=== PATIENT | male | born 1995 | race Caucasian/White ===

== ENCOUNTER 2016-05-14 17:35 | Emergency (ER) | payer OTHER ==
--- NOTE | 2016-05-14 18:31 | ED NURSING NOTES ---
Clinical Report - Nurses [facility] [address] [place] [address] 05/14/2016 17:35 Patient: MANUEL THORPE III TRIAGE Triage time 17:54. Acuity: LEVEL 4. Chief Complaint: SORE THROAT and FEVER. Alert. No acute distress. SEPSIS SCREEN: Sepsis Screen. Negative (no infection suspected/documented). SANG COMA SCORE: [place] Coma Scale: 15- eyes open spontaneously (4); best verbal response- oriented x 4 (5); best motor response- obeys commands (6). --17:59 Mariajose Mosquera R.N. 17:53 05/14/16. BP: 129/42. HR: 90. RR: 16. O2 saturation: 99%. Temp: 98.4 F. Pain level now 7/10. --17:59 Mariajose Mosquera R.N. Weight: 82.5 kg stated. Height/Length: 68 inches Per Patient. BMI: 27.7. Growth Chart Percentile: Weight: 83.4%. Height/Length: 28.7%. --17:57 Mariajose Mosquera R.N. Medications Tylenol with Codeine #3 Oral, as needed. --17:59 Mariajose Mosquera R.N. Allergies No Known Drug Allergy. --17:59 Mariajose Mosquera R.N. History Arrived by private vehicle. Historian: patient. Unaccompanied. Primary physician (none). Onset. (3 days). 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 ([place] and give tylenol #3 and throat lozenges.). PAST MEDICAL HX: Immunizations: up-to-date. SOCIAL HX: Never smoker. No alcohol use or drug use. No infectious disease exposure. ABUSE ASSESSMENT: Abuse assessment: The patient was asked "Do you feel safe in your home?" and "Has anyone hurt you or threatened to hurt you?". No report of abuse. SELF HARM ASSESSMENT: A self harm assessment was performed. The patient answered "no" to the question "Do you have thoughts of harming or killing yourself?" and "Have you recently had thoughts about harming or killing others?". NUTRITIONAL RISK ASSESSMENT: The nutritional risk assessment revealed no deficiencies. FUNCTIONAL ASSESSMENT: Functional assessment: no impairments noted. LEARNING NEEDS ASSESSMENT: The learning needs assessment revealed no barriers. --17:59 Mariajose Mosquera R.N. PROBLEMS: Tonsillitis. Laceration. --17:59 Mariajose Mosquera R.N. Interventions ID band on patient. Ambulatory. --17:59 Mariajose Mosquera R.N. PHYSICAL ASSESSMENT Ambulatory to room. GENERAL / NEURO / PSYCH: Alert. Appears in no acute distress. HEENT: Hoarse voice. RESPIRATORY: Respirations not labored. SKIN: Skin is warm and dry. --18:00 Mariajose Mosquera R.N. NURSING PROGRESS NOTES Head of bed elevated. Two patient identifiers checked. Call light placed in reach. Side rails up x 2. Bed placed in lowest position. Brakes of bed on. Patient ready for evaluation- chart flagged. --18:00 Mariajoes Mosquera R.N. Patient ID band checked for patient name, birthdate and medical record number: patient confirmed. Throat swab obtained for rapid strep and culture; labeled in the presence of the patient and sent to lab. --18:00 Mariajose Mosquera R.N. 18:07 05/14/2016 Dexamethasone (Dexamethasone) PO 8 mg given. Allergies verified and confirmed 5 rights. --18:07 Mariajose Mosquera R.N. DISPOSITION / DISCHARGE 18:43. Departure time: 184. Condition at departure: stable. No learning barriers present. Discharge instructions provided and reviewed with the patient. Reviewed medication(s) side effects, precautions, dosing and course information. Prescription(s) given to the patient. Reviewed referral to family practice for followup. Patient verbalized understanding. Written instructions provided in Lebanese. The patient was discharged home and unaccompanied at time of discharge. He left the Emergency Department ambulatory and via private vehicle. Medication list reviewed and validated. --18:49 Mariajose Mosquera R.N. 18:43 05/14/16. RR: 15. Additional comments: d/c v/s deferred due to pt. in ED < 1 hour. Pt. appears stable and comfortable at time of discharge. . --18:49 Mariajose Mosquera R.N. Locked/Released at 05/14/2016 18:50 by Mariajose Mosquera R.N.
--- NOTE | 2016-05-14 18:31 | ED CLINICAL REPORT ---
Clinical Report - Physicians/Mid Levels [facility] [address] [place] [address] 05/14/2016 17:35 Patient: MANUEL THORPE III Time Seen: 18:00 May 14 2016. Arrived- By private vehicle. Historian- patient. 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 This started just prior to arrival and is still present. Pain described as mild. The patient has had a sore throat. No nasal discharge or congestion or swollen jaw. (Patient with sore throat over the last 2 days, was recently seen at the clinic, nasal clinic Center on Tylenol with Codeine and some lozenges. NO recent exposures to [place]. NO cough. Fevers subj yesterday at clinic). REVIEW OF SYSTEMS No cough, chest pain, diarrhea, abdominal pain or skin rash. No enlarged lymph nodes. SOCIAL HISTORY Never smoker. No alcohol use or drug use. ADDITIONAL NOTES The nursing notes have been reviewed. PHYSICAL EXAM Vital Signs: 05/14/2016 17:53 BP: 129/42. HR: 90. RR: 16. O2 saturation: 99%. Temp: 98.4 F. Appearance: Alert. Eyes: Conjunctivae and eyelids normal. ENT: Pharyngeal erythema. Pharynx normal. No trismus present. Uvula midline. No dental decay. Neck: Lymphadenopathy present. Trachea midline. Thyroid normal. Neck supple. CVS: Normal heart rate and rhythm. Heart sounds normal. Respiratory: No respiratory distress. Chest nontender. Abdomen: Soft. Skin: Normal skin color. PROGRESS AND PROCEDURES Course of Care: 06/06 centor criteria Pt stable. No fever in er, subjective. Pt stable. TO f/u outpatient. NO recent mono exposure. Sx acute in nature. Uvula midline, no shift. 05/14/2016 18:43 RR: 15. Patient is stable. Symptoms better. Patient/family counseled. Disposition: Discharged. Condition: good. CLINICAL IMPRESSION Acute streptococcal pharyngitis INSTRUCTIONS Do not work tomorrow. Drink plenty of fluids. Prescription Medications: Amoxicillin 500 mg tablets: take 1 orally every 8 hours for 10 days. No refills. Ibuprofen 800 mg tablets: take 1 tablet orally every 8 hours for 3 days, as needed for pain. Dispense ten (10). No refill. Follow-up: Follow up with doctor in three days. Understanding of the discharge instructions verbalized. (Electronically signed by Lynn Diaz P.A.-C 05/14/2016 18:53)
--- NOTE | 2016-05-14 18:31 | ED NURSING NOTES ---
Clinical Report - Nurses [facility] [address] [place] [address] 05/14/2016 17:35 Patient: MANUEL THORPE III TRIAGE Triage time 17:54. Acuity: LEVEL 4. Chief Complaint: SORE THROAT and FEVER. Alert. No acute distress. SEPSIS SCREEN: Sepsis Screen. Negative (no infection suspected/documented). SANG COMA SCORE: [place] Coma Scale: 15- eyes open spontaneously (4); best verbal response- oriented x 4 (5); best motor response- obeys commands (6). --17:59 Mariajose Mosquera R.N. 17:53 05/14/16. BP: 129/42. HR: 90. RR: 16. O2 saturation: 99%. Temp: 98.4 F. Pain level now 7/10. --17:59 Mariajose Mosquera R.N. Weight: 82.5 kg stated. Height/Length: 68 inches Per Patient. BMI: 27.7. Growth Chart Percentile: Weight: 83.4%. Height/Length: 28.7%. --17:57 Mariajose Mosquera R.N. Medications Tylenol with Codeine #3 Oral, as needed. --17:59 Mariajose Mosquera R.N. Allergies No Known Drug Allergy. --17:59 Mariajose Mosquera R.N. History Arrived by private vehicle. Historian: patient. Unaccompanied. Primary physician (none). Onset. (3 days). 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 ([place] and give tylenol #3 and throat lozenges.). PAST MEDICAL HX: Immunizations: up-to-date. SOCIAL HX: Never smoker. No alcohol use or drug use. No infectious disease exposure. ABUSE ASSESSMENT: Abuse assessment: The patient was asked "Do you feel safe in your home?" and "Has anyone hurt you or threatened to hurt you?". No report of abuse. SELF HARM ASSESSMENT: A self harm assessment was performed. The patient answered "no" to the question "Do you have thoughts of harming or killing yourself?" and "Have you recently had thoughts about harming or killing others?". NUTRITIONAL RISK ASSESSMENT: The nutritional risk assessment revealed no deficiencies. FUNCTIONAL ASSESSMENT: Functional assessment: no impairments noted. LEARNING NEEDS ASSESSMENT: The learning needs assessment revealed no barriers. --17:59 Mariajose Mosquera R.N. PROBLEMS: Tonsillitis. Laceration. --17:59 Mariajose Mosquera R.N. Interventions ID band on patient. Ambulatory. --17:59 Mariajose Mosquera R.N. PHYSICAL ASSESSMENT Ambulatory to room. GENERAL / NEURO / PSYCH: Alert. Appears in no acute distress. HEENT: Hoarse voice. RESPIRATORY: Respirations not labored. SKIN: Skin is warm and dry. --18:00 Mariajose Mosquera R.N. NURSING PROGRESS NOTES Head of bed elevated. Two patient identifiers checked. Call light placed in reach. Side rails up x 2. Bed placed in lowest position. Brakes of bed on. Patient ready for evaluation- chart flagged. --18:00 Mariajose Mosquera R.N. Patient ID band checked for patient name, birthdate and medical record number: patient confirmed. Throat swab obtained for rapid strep and culture; labeled in the presence of the patient and sent to lab. --18:00 Mariajose Mosquera R.N. 18:07 05/14/2016 Dexamethasone (Dexamethasone) PO 8 mg given. Allergies verified and confirmed 5 rights. --18:07 Mariajose Mosquera R.N. DISPOSITION / DISCHARGE 18:43. Departure time: 184. Condition at departure: stable. No learning barriers present. Discharge instructions provided and reviewed with the patient. Reviewed medication(s) side effects, precautions, dosing and course information. Prescription(s) given to the patient. Reviewed referral to family practice for followup. Patient verbalized understanding. Written instructions provided in British. The patient was discharged home and unaccompanied at time of discharge. He left the Emergency Department ambulatory and via private vehicle. Medication list reviewed and validated. --18:49 Mariajose Mosquera R.N. 18:43 05/14/16. RR: 15. Additional comments: d/c v/s deferred due to pt. in ED < 1 hour. Pt. appears stable and comfortable at time of discharge. . --18:49 Mariajose Mosquera R.N. Locked/Released at 05/14/2016 18:50 by Mariajose Mosquera R.N.
--- NOTE | 2016-05-14 18:31 | ED CLINICAL REPORT ---
Clinical Report - Physicians/Mid Levels [facility] [address] [place] [address] 05/14/2016 17:35 Patient: MANUEL THORPE III Time Seen: 18:00 May 14 2016. Arrived- By private vehicle. Historian- patient. 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 This started just prior to arrival and is still present. Pain described as mild. The patient has had a sore throat. No nasal discharge or congestion or swollen jaw. (Patient with sore throat over the last 2 days, was recently seen at the clinic, nasal clinic [facility] on Tylenol with Codeine and some lozenges. NO recent exposures to [place]. NO cough. Fevers subj yesterday at clinic). REVIEW OF SYSTEMS No cough, chest pain, diarrhea, abdominal pain or skin rash. No enlarged lymph nodes. SOCIAL HISTORY Never smoker. No alcohol use or drug use. ADDITIONAL NOTES The nursing notes have been reviewed. PHYSICAL EXAM Vital Signs: 05/14/2016 17:53 BP: 129/42. HR: 90. RR: 16. O2 saturation: 99%. Temp: 98.4 F. Appearance: Alert. Eyes: Conjunctivae and eyelids normal. ENT: Pharyngeal erythema. Pharynx normal. No trismus present. Uvula midline. No dental decay. Neck: Lymphadenopathy present. Trachea midline. Thyroid normal. Neck supple. CVS: Normal heart rate and rhythm. Heart sounds normal. Respiratory: No respiratory distress. Chest nontender. Abdomen: Soft. Skin: Normal skin color. PROGRESS AND PROCEDURES Course of Care: 06/06 centor criteria Pt stable. No fever in er, subjective. Pt stable. TO f/u outpatient. NO recent mono exposure. Sx acute in nature. Uvula midline, no shift. 05/14/2016 18:43 RR: 15. Patient is stable. Symptoms better. Patient/family counseled. Disposition: Discharged. Condition: good. CLINICAL IMPRESSION Acute streptococcal pharyngitis INSTRUCTIONS Do not work tomorrow. Drink plenty of fluids. Prescription Medications: Amoxicillin 500 mg tablets: take 1 orally every 8 hours for 10 days. No refills. Ibuprofen 800 mg tablets: take 1 tablet orally every 8 hours for 3 days, as needed for pain. Dispense ten (10). No refill. Follow-up: Follow up with doctor in three days. Understanding of the discharge instructions verbalized. (Electronically signed by Lynn Diaz P.A.-C 05/14/2016 18:53)
--- NOTE | 2016-05-14 18:31 | ED ORDER SUMMARY ---
..... Patient: MANUEL THORPE III OrderSheet [facility] VisitID: [id number] [place] [address] 20y, M Registration Date/Time: 05/14/2016 ORDER SHEET Weight: 82.5 kg (stated) Allergies: No Known Drug Allergy GENERAL ORDERS: Culture, Strep Screen Urgent (17:59 05/14/2016 Maribel Carr.A.-C) (Ack 18:03 Alexandro) (18:04 Sharon R.N.) MEDICATION ORDERS: Dexamethasone PO 8mg (NOW) (17:59 05/14/2016 Maribel Carr.Camila.-C) (Ack 18:04 Sharon R.N.) (18:07 Sharon R.N.) IV FLUIDS: ORDER SHEET NOTES: [Electronically signed by Mariajose Mosquera R.N. (18:50 05/14/2016)] [Electronically signed by Lynn Diaz-Castro (18:53 05/14/2016)] [Electronically locked/signed by Mariajose Mosquera R.N. (18:50 05/14/2016)]
--- NOTE | 2016-05-14 18:31 | ED ORDER SUMMARY ---
..... Patient: MANUEL THORPE III OrderSheet [facility] VisitID: [id number] [place] [address] 20y, M Registration Date/Time: 05/14/2016 ORDER SHEET Weight: 82.5 kg (stated) Allergies: No Known Drug Allergy GENERAL ORDERS: Culture, Strep Screen Urgent (17:59 05/14/2016 Maribel Carr.A.-C) (Ack 18:03 Alexandro) (18:04 Sharon R.N.) MEDICATION ORDERS: Dexamethasone PO 8mg (NOW) (17:59 05/14/2016 Maribel Carr.Camila.-C) (Ack 18:04 Sharon R.N.) (18:07 Sharon R.N.) IV FLUIDS: ORDER SHEET NOTES: [Electronically signed by Mariajose Mosquera R.N. (18:50 05/14/2016)] [Electronically signed by Lynn Diaz-Castro (18:53 05/14/2016)] [Electronically locked/signed by Mariajose Mosquera R.N. (18:50 05/14/2016)]
--- NOTE | 2016-05-14 18:53 | ED MAR SUMMARY ---
..... Medication Administration Record [facility] [address] [place] [address] Patient: MANUEL THORPE Visit ID: [id number] 20y, M Weight: 82.5 kg Height/Length: 68 in BMI: 27.7 ALLERGIES: No Known Drug Allergy Given 18:07 05/14/2016 Mariajose Mosquera RJohnathon Medication Administered: DEXAMETHASONE [PO] (DEXAMETHASONE), Dose: 8 mg PO. Medication Ordered: Dexamethasone PO 8mg (NOW).
--- NOTE | 2016-05-14 18:53 | ED MAR SUMMARY ---
..... Medication Administration Record [facility] [address] [place] [address] Patient: MANUEL THORPE Visit ID: [id number] 20y, M Weight: 82.5 kg Height/Length: 68 in BMI: 27.7 ALLERGIES: No Known Drug Allergy Given 18:07 05/14/2016 Mariajose Mosquera RJohnathon Medication Administered: DEXAMETHASONE [PO] (DEXAMETHASONE), Dose: 8 mg PO. Medication Ordered: Dexamethasone PO 8mg (NOW).
--- NOTE | 2016-05-14 18:53 | ED MED RECONCILIATION SUMMARY ---
Patient: MANUEL THORPE III Medication Reconciliation Report [facility] VisitID: [id number] [address] [place] [address] 20y, M Registration Date/Time: 05/14/2016 Weight: 82.5 kg Height/Length: 68 in. BMI: 27.7 ALLERGIES: No Known Drug Allergy The patient's Home Medications are listed below: THE FOLLOWING MEDICATIONS NEED TO BE RECONCILED: Tylenol with Codeine #3 Oral The source(s) of the original Home Medication information: Not obtained. The following Medications were given to the patient in the Emergency Department: Dexamethasone [PO] PO 8 mg, administered: 05/14/2016 6:07:00 PM The following Medications were prescribed to the patient: Amoxicillin 500 mg tablets: take 1 orally every 8 hours for 10 days. No refills. -- Lynn Diaz, P.A.-C Ibuprofen 800 mg tablets: take 1 tablet orally every 8 hours for 3 days, as needed for pain. Dispense ten (10). No refill. -- Lynn Diaz, P.A.-C
--- NOTE | 2016-05-14 18:53 | ED MED RECONCILIATION SUMMARY ---
Patient: MANUEL THORPE III Medication Reconciliation Report [facility] VisitID: [id number] [address] [place] [address] 20y, M Registration Date/Time: 05/14/2016 Weight: 82.5 kg Height/Length: 68 in. BMI: 27.7 ALLERGIES: No Known Drug Allergy The patient's Home Medications are listed below: THE FOLLOWING MEDICATIONS NEED TO BE RECONCILED: Tylenol with Codeine #3 Oral The source(s) of the original Home Medication information: Not obtained. The following Medications were given to the patient in the Emergency Department: Dexamethasone [PO] PO 8 mg, administered: 05/14/2016 6:07:00 PM The following Medications were prescribed to the patient: Amoxicillin 500 mg tablets: take 1 orally every 8 hours for 10 days. No refills. -- Lynn Diaz, P.A.-C Ibuprofen 800 mg tablets: take 1 tablet orally every 8 hours for 3 days, as needed for pain. Dispense ten (10). No refill. -- Lynn Diaz, P.A.-C
--- NOTE | 2016-05-14 18:53 | ED DISCHARGE INSTRUCTIONS ---
Patient: MANUEL THORPE III General Instructions [facility] VisitID: [id number] [place] [address] 20y, M Registration Date/Time: 05/14/2016 Acute streptococcal pharyngitis INSTRUCTIONS Do not work tomorrow. Drink plenty of fluids. Prescription Medications: Amoxicillin 500 mg tablets: take 1 orally every 8 hours for 10 days. No refills. Ibuprofen 800 mg tablets: take 1 tablet orally every 8 hours for 3 days, as needed for pain. Dispense ten (10). No refill. Follow-up: Follow up with doctor in three days. Understanding of the discharge instructions verbalized. ADDITIONAL INFORMATION Pharyngitis: Strep [Presumed] Your illness has the signs of a strep throat infection. Strep throat is a contagious illness. It is spread by coughing, kissing or by touching others after touching your mouth or nose. Symptoms include throat pain worse with swallowing, aching all over, headache and fever. You will be treated with an antibiotic, which should make you start to feel better within 1-2 days. Home Care: Rest at home and drink plenty of fluids to avoid dehydration. No school or work for the first two days on antibiotics. You will not be contagious after this time, and if you are feeling better, you can return to school or work. Take your antibiotics for a full 10 days, even if you feel better after the first few days of treatment. This is very important to prevent complications from the strep infection (such as heart or kidney disease). Children: Use acetaminophen (Tylenol) for fever, fussiness or discomfort. In infants over six months of age, you may use ibuprofen (Children's Motrin) instead of Tylenol. [NOTE: If your child has chronic liver or kidney disease or ever had a stomach ulcer or GI bleeding, talk with your doctor before using these medicines.] (Aspirin should never be used in anyone under 18 years of age who is ill with a fever. It may cause severe liver damage.) Adults: You may use acetaminophen (Tylenol) or ibuprofen (Motrin, Advil) to control pain or fever, unless another medicine was prescribed for this. [NOTE: If you have chronic liver or kidney disease or ever had a stomach ulcer or GI bleeding, talk with your doctor before using these medicines.] Throat lozenges or sprays (Chloraseptic and others) will reduce pain. Gargling with warm salt water will also reduce throat pain. Dissolve 1/2 teaspoon of salt in 1 glass of warm water. This is especially useful just before meals. Follow Up with your doctor or as directed by our staff if you are not improving over the next week. Get Prompt Medical Attention if any of the following occur: Fever over 100.5F (38.0C) oral, or over 101.5F (38.6C) rectal for more than three days New or worsening ear pain, sinus pain or headache Painful lumps in the back of your neck Unable to swallow liquids or open your mouth wide due to throat pain Trouble breathing or noisy breathing Muffled voice New rash Amoxicillin Trihydrate Oral tablet What is this medicine? AMOXICILLIN (a mox i JUDE in) is a penicillin antibiotic. It is used to treat certain kinds of bacterial infections. It will not work for colds, flu, or other viral infections. How should I use this medicine? Take this medicine by mouth with a glass of water. Follow the directions on your prescription label. You may take this medicine with food or on an empty stomach. Take your medicine at regular intervals. Do not take your medicine more often than directed. Take all of your medicine as directed even if you think your are better. Do not skip doses or stop your medicine early. Talk to your radio disc jockey regarding the use of this medicine in children. While this drug may be prescribed for selected conditions, precautions do apply. What side effects may I notice from receiving this medicine? Side effects that you should report to your doctor or health resident care coordinator as soon as possible: allergic reactions like skin rash, itching or hives, swelling of the face, lips, or tongue breathing problems dark urine redness, blistering, peeling or loosening of the skin, including inside the mouth seizures severe or watery diarrhea trouble passing urine or change in the amount of urine unusual bleeding or bruising unusually weak or tired yellowing of the eyes or skin Side effects that usually do not require medical attention (report to your doctor or health resident care coordinator if they continue or are bothersome): dizziness headache stomach upset trouble sleeping What may interact with this medicine? amiloride control pills chloramphenicol macrolides probenecid sulfonamides tetracyclines What if I miss a dose? If you miss a dose, take it as soon as you can. If it is almost time for your next dose, take only that dose. Do not take double or extra doses. Where should I keep my medicine? Keep out of the reach of children. Store between 68 and 77 degrees F (20 and 25 degrees C). Keep bottle closed tightly. Throw away any unused medicine after the expiration date. What should I tell my health care provider before I take this medicine? They need to know if you have any of these conditions: asthma kidney disease an unusual or allergic reaction to amoxicillin, other penicillins, cephalosporin antibiotics, other medicines, foods, dyes, or preservatives or trying to get breast-feeding What should I watch for while using this medicine? Tell your doctor or health resident care coordinator if your symptoms do not improve in 2 or 3 days. Take all of the doses of your medicine as directed. Do not skip doses or stop your medicine early. If you are diabetic, you may get a false positive result for sugar in your urine with certain brands of urine tests. Check with your doctor. Do not treat diarrhea with [id number] products. Contact your doctor if you have diarrhea that lasts more than 2 days or if the diarrhea is severe and watery. Ibuprofen Oral tablet What is this medicine? IBUPROFEN (eye BYOO proe fen) is a non-steroidal anti-inflammatory drug (NSAID). It is used for dental pain, fever, headaches or migraines, osteoarthritis, rheumatoid arthritis, or painful monthly periods. It can also relieve minor aches and pains caused by a cold, flu, or sore throat. How should I use this medicine? Take this medicine by mouth with a glass of water. Follow the directions on the prescription label. Take this medicine with food if your stomach gets upset. Try to not lie down for at least 10 minutes after you take the medicine. Take your medicine at regular intervals. Do not take your medicine more often than directed. A special MedGuide will be given to you by the pharmacist with each prescription and refill. Be sure to read this information carefully each time. Talk to your radio disc jockey regarding the use of this medicine in children. Special care may be needed. What side effects may I notice from receiving this medicine? Side effects that you should report to your doctor or health resident care coordinator as soon as possible: allergic reactions like skin rash, itching or hives, swelling of the face, lips, or tongue black or bloody stools, blood in the urine or in vomit breathing problems changes in vision chest pain general ill feeling or flu-like symptoms nausea or vomiting redness, blistering, peeling or loosening of the skin, including inside the mouth slurred speech or weakness on one side of the body stomach pain unexplained weight gain or swelling unusually weak or tired yellowing of eyes or skin Side effects that usually do not require medical attention (report to your doctor or health resident care coordinator if they continue or are bothersome): constipation or diarrhea dizziness gas or heartburn stomach upset What may interact with this medicine? Do not take this medicine with any of the following medications: cidofovir ketorolac methotrexate pemetrexed This medicine may also interact with the following medications: alcohol aspirin diuretics lithium other drugs for inflammation like prednisone warfarin What if I miss a dose? If you miss a dose, take it as soon as you can. If it is almost time for your next dose, take only that dose. Do not take double or extra doses. Where should I keep my medicine? Keep out of the reach of children. Store at room temperature between 15 and 30 degrees C (59 and 86 degrees F). Keep container tightly closed. Throw away any unused medicine after the expiration date. What should I tell my health care provider before I take this medicine? They need to know if you have any of these conditions: asthma cigarette smoker drink more than 3 alcohol containing drinks a day heart disease or circulation problems such as heart failure or leg edema (fluid retention) high blood pressure kidney disease liver disease stomach bleeding or ulcers an unusual or allergic reaction to ibuprofen, aspirin, other NSAIDS, other medicines, foods, dyes, or preservatives or trying to get breast-feeding What should I watch for while using this medicine? Tell your doctor or healthcare professional if your symptoms do not start to get better or if they get worse. This medicine does not prevent heart attack or stroke. In fact, this medicine may increase the chance of a heart attack or stroke. The chance may increase with longer use of this medicine and in people who have heart disease. If you take aspirin to prevent heart attack or stroke, talk with your doctor or health resident care coordinator. Do not take other medicines that contain aspirin, ibuprofen, or naproxen with this medicine. Side effects such as stomach upset, nausea, or ulcers may be more likely to occur. Many medicines available without a prescription should not be taken with this medicine. This medicine can cause ulcers and bleeding in the stomach and intestines at any time during treatment. Ulcers and bleeding can happen without warning symptoms and can cause . To reduce your risk, do not smoke cigarettes or drink alcohol while you are taking this medicine. You may get drowsy or dizzy. Do not drive, use machinery, or do anything that needs mental alertness until you know how this medicine affects you. Do not stand or sit up quickly, especially if you are an older patient. This reduces the risk of dizzy or fainting spells. This medicine can cause you to bleed more easily. Try to avoid damage to your teeth and gums when you brush or floss your teeth. You have been given the following additional information: Pharyngitis, Strep (Presumed) Amoxicillin Trihydrate Oral tablet Ibuprofen Oral tablet Do not work tomorrow. (Electronically signed by Lynn Diaz P.A.-C 05/14/2016 18:53)
--- NOTE | 2016-05-14 18:53 | ED DISCHARGE INSTRUCTIONS ---
Patient: MANUEL THORPE III General Instructions [facility] VisitID: [id number] [place] [address] 20y, M Registration Date/Time: 05/14/2016 Acute streptococcal pharyngitis INSTRUCTIONS Do not work tomorrow. Drink plenty of fluids. Prescription Medications: Amoxicillin 500 mg tablets: take 1 orally every 8 hours for 10 days. No refills. Ibuprofen 800 mg tablets: take 1 tablet orally every 8 hours for 3 days, as needed for pain. Dispense ten (10). No refill. Follow-up: Follow up with doctor in three days. Understanding of the discharge instructions verbalized. ADDITIONAL INFORMATION Pharyngitis: Strep [Presumed] Your illness has the signs of a strep throat infection. Strep throat is a contagious illness. It is spread by coughing, kissing or by touching others after touching your mouth or nose. Symptoms include throat pain worse with swallowing, aching all over, headache and fever. You will be treated with an antibiotic, which should make you start to feel better within 1-2 days. Home Care: Rest at home and drink plenty of fluids to avoid dehydration. No school or work for the first two days on antibiotics. You will not be contagious after this time, and if you are feeling better, you can return to school or work. Take your antibiotics for a full 10 days, even if you feel better after the first few days of treatment. This is very important to prevent complications from the strep infection (such as heart or kidney disease). Children: Use acetaminophen (Tylenol) for fever, fussiness or discomfort. In infants over six months of age, you may use ibuprofen (Children's Motrin) instead of Tylenol. [NOTE: If your child has chronic liver or kidney disease or ever had a stomach ulcer or GI bleeding, talk with your doctor before using these medicines.] (Aspirin should never be used in anyone under 18 years of age who is ill with a fever. It may cause severe liver damage.) Adults: You may use acetaminophen (Tylenol) or ibuprofen (Motrin, Advil) to control pain or fever, unless another medicine was prescribed for this. [NOTE: If you have chronic liver or kidney disease or ever had a stomach ulcer or GI bleeding, talk with your doctor before using these medicines.] Throat lozenges or sprays (Chloraseptic and others) will reduce pain. Gargling with warm salt water will also reduce throat pain. Dissolve 1/2 teaspoon of salt in 1 glass of warm water. This is especially useful just before meals. Follow Up with your doctor or as directed by our staff if you are not improving over the next week. Get Prompt Medical Attention if any of the following occur: Fever over 100.5F (38.0C) oral, or over 101.5F (38.6C) rectal for more than three days New or worsening ear pain, sinus pain or headache Painful lumps in the back of your neck Unable to swallow liquids or open your mouth wide due to throat pain Trouble breathing or noisy breathing Muffled voice New rash Amoxicillin Trihydrate Oral tablet What is this medicine? AMOXICILLIN (a mox i JUDE in) is a penicillin antibiotic. It is used to treat certain kinds of bacterial infections. It will not work for colds, flu, or other viral infections. How should I use this medicine? Take this medicine by mouth with a glass of water. Follow the directions on your prescription label. You may take this medicine with food or on an empty stomach. Take your medicine at regular intervals. Do not take your medicine more often than directed. Take all of your medicine as directed even if you think your are better. Do not skip doses or stop your medicine early. Talk to your furniture sales associate regarding the use of this medicine in children. While this drug may be prescribed for selected conditions, precautions do apply. What side effects may I notice from receiving this medicine? Side effects that you should report to your doctor or health healthcare management as soon as possible: allergic reactions like skin rash, itching or hives, swelling of the face, lips, or tongue breathing problems dark urine redness, blistering, peeling or loosening of the skin, including inside the mouth seizures severe or watery diarrhea trouble passing urine or change in the amount of urine unusual bleeding or bruising unusually weak or tired yellowing of the eyes or skin Side effects that usually do not require medical attention (report to your doctor or health healthcare management if they continue or are bothersome): dizziness headache stomach upset trouble sleeping What may interact with this medicine? amiloride control pills chloramphenicol macrolides probenecid sulfonamides tetracyclines What if I miss a dose? If you miss a dose, take it as soon as you can. If it is almost time for your next dose, take only that dose. Do not take double or extra doses. Where should I keep my medicine? Keep out of the reach of children. Store between 68 and 77 degrees F (20 and 25 degrees C). Keep bottle closed tightly. Throw away any unused medicine after the expiration date. What should I tell my health care provider before I take this medicine? They need to know if you have any of these conditions: asthma kidney disease an unusual or allergic reaction to amoxicillin, other penicillins, cephalosporin antibiotics, other medicines, foods, dyes, or preservatives or trying to get breast-feeding What should I watch for while using this medicine? Tell your doctor or health healthcare management if your symptoms do not improve in 2 or 3 days. Take all of the doses of your medicine as directed. Do not skip doses or stop your medicine early. If you are diabetic, you may get a false positive result for sugar in your urine with certain brands of urine tests. Check with your doctor. Do not treat diarrhea with [id number] products. Contact your doctor if you have diarrhea that lasts more than 2 days or if the diarrhea is severe and watery. Ibuprofen Oral tablet What is this medicine? IBUPROFEN (eye BYOO proe fen) is a non-steroidal anti-inflammatory drug (NSAID). It is used for dental pain, fever, headaches or migraines, osteoarthritis, rheumatoid arthritis, or painful monthly periods. It can also relieve minor aches and pains caused by a cold, flu, or sore throat. How should I use this medicine? Take this medicine by mouth with a glass of water. Follow the directions on the prescription label. Take this medicine with food if your stomach gets upset. Try to not lie down for at least 10 minutes after you take the medicine. Take your medicine at regular intervals. Do not take your medicine more often than directed. A special MedGuide will be given to you by the pharmacist with each prescription and refill. Be sure to read this information carefully each time. Talk to your furniture sales associate regarding the use of this medicine in children. Special care may be needed. What side effects may I notice from receiving this medicine? Side effects that you should report to your doctor or health healthcare management as soon as possible: allergic reactions like skin rash, itching or hives, swelling of the face, lips, or tongue black or bloody stools, blood in the urine or in vomit breathing problems changes in vision chest pain general ill feeling or flu-like symptoms nausea or vomiting redness, blistering, peeling or loosening of the skin, including inside the mouth slurred speech or weakness on one side of the body stomach pain unexplained weight gain or swelling unusually weak or tired yellowing of eyes or skin Side effects that usually do not require medical attention (report to your doctor or health healthcare management if they continue or are bothersome): constipation or diarrhea dizziness gas or heartburn stomach upset What may interact with this medicine? Do not take this medicine with any of the following medications: cidofovir ketorolac methotrexate pemetrexed This medicine may also interact with the following medications: alcohol aspirin diuretics lithium other drugs for inflammation like prednisone warfarin What if I miss a dose? If you miss a dose, take it as soon as you can. If it is almost time for your next dose, take only that dose. Do not take double or extra doses. Where should I keep my medicine? Keep out of the reach of children. Store at room temperature between 15 and 30 degrees C (59 and 86 degrees F). Keep container tightly closed. Throw away any unused medicine after the expiration date. What should I tell my health care provider before I take this medicine? They need to know if you have any of these conditions: asthma cigarette smoker drink more than 3 alcohol containing drinks a day heart disease or circulation problems such as heart failure or leg edema (fluid retention) high blood pressure kidney disease liver disease stomach bleeding or ulcers an unusual or allergic reaction to ibuprofen, aspirin, other NSAIDS, other medicines, foods, dyes, or preservatives or trying to get breast-feeding What should I watch for while using this medicine? Tell your doctor or healthcare professional if your symptoms do not start to get better or if they get worse. This medicine does not prevent heart attack or stroke. In fact, this medicine may increase the chance of a heart attack or stroke. The chance may increase with longer use of this medicine and in people who have heart disease. If you take aspirin to prevent heart attack or stroke, talk with your doctor or health healthcare management. Do not take other medicines that contain aspirin, ibuprofen, or naproxen with this medicine. Side effects such as stomach upset, nausea, or ulcers may be more likely to occur. Many medicines available without a prescription should not be taken with this medicine. This medicine can cause ulcers and bleeding in the stomach and intestines at any time during treatment. Ulcers and bleeding can happen without warning symptoms and can cause . To reduce your risk, do not smoke cigarettes or drink alcohol while you are taking this medicine. You may get drowsy or dizzy. Do not drive, use machinery, or do anything that needs mental alertness until you know how this medicine affects you. Do not stand or sit up quickly, especially if you are an older patient. This reduces the risk of dizzy or fainting spells. This medicine can cause you to bleed more easily. Try to avoid damage to your teeth and gums when you brush or floss your teeth. You have been given the following additional information: Pharyngitis, Strep (Presumed) Amoxicillin Trihydrate Oral tablet Ibuprofen Oral tablet Do not work tomorrow. (Electronically signed by Lynn Diaz P.A.-C 05/14/2016 18:53)
== END 2016-05-14 18:43 | disposition home or self-care (01) ==
LOC: ED SRH 17:35
DX: J02.0 Streptococcal pharyngitis (principal)
CPT/HCPCS: 90154; 90159

== ENCOUNTER 2016-06-05 13:19 | Emergency (ER) | payer OTHER ==
--- NOTE | 2016-06-05 15:45 | ED NURSING NOTES ---
Clinical Report - Nurses [facility] [address] [place] [address] 06/05/2016 13:21 [id number] Triage time 14:Jun 05 2016. Acuity: LEVEL 3. Chief Complaint: SORE THROAT. Alert. SARAH COMA SCORE: Sarah Coma Scale: 15- eyes open spontaneously (4); best verbal response- oriented x 4 (5); best motor response- obeys commands (6). --14:06 Myles Heebrt R.N. 14:01 06/05/16. BP: 135/79. HR: 87. RR: 16. O2 saturation: 100% on room air. Temp: 97.9 F (oral). Pain level now: 6/10. Additional comments: throat pain. --14:06 Myles Hebert R.N. Weight: 81.6 kg stated. Height/Length: 68 inches Per Patient. BMI: 27.4. Growth Chart Percentile: Weight: 81.6%. Height/Length: 28.6%. --14:03 Myles Hebert R.N. Medications None. --14:04 Myles Hebert R.N. Allergies No Known Drug Allergy. --14:05 Myles Hebert R.N. History Arrived by private vehicle. Historian: patient. Unaccompanied. ( Sore and swollen Throat). Onset. (about 3 days ago). He has had hoarseness. Reports enlarged lymph nodes. 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 PAST MEDICAL HX: Strep throat. Immunizations: status is unknown. SURGERY HX: No history of previous surgery. SOCIAL HX: Never smoker. No alcohol use or drug use. No infectious disease exposure. ABUSE ASSESSMENT: No report of abuse. FALL RISK ASSESSMENT: Fall risk assessment completed. No fall risk identified. NUTRITIONAL RISK ASSESSMENT: The nutritional risk assessment revealed no deficiencies. FUNCTIONAL ASSESSMENT: Functional assessment: no impairments noted. LEARNING NEEDS ASSESSMENT: The learning needs assessment revealed no barriers. SKIN INTEGRITY ASSESSMENT: Skin integrity risk assessment completed. No skin integrity risk identified. --14:06 Myles Hebert R.N. PROBLEMS: Pharyngitis. Tonsillitis. Laceration. --14:05 Myles Hebert R.N. Interventions ID band on patient. To treatment room. --14:06 Myles Hebert R.N. PHYSICAL ASSESSMENT Ambulatory to room. GENERAL / NEURO / PSYCH: Alert. Oriented X 4. Appears in pain. HEENT: Hoarse voice. Mucous membranes are pink. RESPIRATORY: Respirations not labored. SKIN: Skin is warm and dry. Normal skin turgor. --14:07 Myles Hebert R.N. NURSING PROGRESS NOTES Patient gowned. Reassurance given. Patient identifiers checked. Call light placed in reach. Side rails up x 1. Bed placed in lowest position. Brakes of bed on. Patient ready for evaluation- chart flagged and PA notified. --14:07 Myles Hebert R.N. Patient ID band checked for patient name and birthdate: patient confirmed. Blood samples drawn from the left antecubital space with 23g butterfly by tech per protocol ; labeled in presence of the patient and sent to lab: rainbow set and red, green and blue top. Purple top not drawn. --14:59 Cecile Robledo, DION Tech1 16:16 06/05/2016 Dexamethasone (Dexamethasone) PO Tablets 8 mg given. Allergies verified and confirmed 5 rights. --16:21 Maxine Zamudio R.N. 16:16 06/05/2016 Amoxicillin PO Capsules 500 mg given. Allergies verified and confirmed 5 rights. --16:21 Maxine Zamudio R.N. 16:20. The patient is resting quietly. Overall patient status is the same- he states feels the same (was able to swallow pills without difficulty). GENERAL / NEURO / PSYCH: Alert. Oriented X 4. RESPIRATORY: No respiratory distress. SKIN: Skin is warm and dry. --16:53 Maxine Zamudio R.N. DISPOSITION / DISCHARGE Departure time: 1620. Condition at departure: stable. No learning barriers present. Discharge instructions provided and reviewed with the patient. Reviewed medication(s). Prescription(s) given to the patient. Work note given. Patient verbalized understanding. Written instructions provided in Czech. The patient was discharged home and unaccompanied at time of discharge. He left the Emergency Department ambulatory and via private vehicle. FALL RISK ASSESSMENT: Fall risk assessment completed. No fall risk identified. --16:55 Maxine Zamudio R.N. 16:20 06/05/16. BP: 121/49. HR: 81. RR: 18. O2 saturation: 98% on room air. Pain level now: 09/11. --16:55 Maxine Zamudio R.N. 16:20 06/05/16. Temp: 97.8 F (oral). --16:57 Maxine Zamudio R.N. Locked/Released at 06/05/2016 16:58 by Maxine Zamudio R.N.
--- NOTE | 2016-06-05 15:45 | ED ORDER SUMMARY ---
..... Patient: MANUEL THORPE III OrderSheet [facility] VisitID: [id number] [address] [place] [address] 20y, M Registration Date/Time: 06/05/2016 ORDER SHEET Weight: 81.6 kg (stated) Allergies: No Known Drug Allergy GENERAL ORDERS: Culture, Strep Screen Urgent (14:09 06/05/2016 EKoroleva P.A.-C) (Ack 14:10 Cody) (14:22 LNations ER Tech1) Monoscreen Urgent (14:42 06/05/2016 EKoroleva P.A.-C) (Ack 14:46 Cody) (14:57 LNations ER Tech1) MEDICATION ORDERS: Dexamethasone PO 8mg (NOW) (15:44 06/05/2016 EKoroleva P.A.-C) (Ack 16:10 Yuli R.N.) (16:21 Yuli R.N.) Amoxicillin PO 500 mg (NOW) (15:44 06/05/2016 EKoroleva P.A.-C) (Ack 16:10 Yuli R.N.) (16:21 Yuli R.N.) IV FLUIDS: ORDER SHEET NOTES: [Electronically signed by Lynn DiazAMichell-C (16:31 06/05/2016)] [Electronically signed by Maxine Zamudio R.N. (16:58 06/05/2016)] [Electronically locked/signed by Maxine Zamudio R.N. (16:58 06/05/2016)]
--- NOTE | 2016-06-05 15:45 | ED ORDER SUMMARY ---
..... Patient: MANUEL THORPE III OrderSheet [facility] VisitID: [id number] [address] [place] [address] 20y, M Registration Date/Time: 06/05/2016 ORDER SHEET Weight: 81.6 kg (stated) Allergies: No Known Drug Allergy GENERAL ORDERS: Culture, Strep Screen Urgent (14:09 06/05/2016 EKoroleva P.A.-C) (Ack 14:10 Cody) (14:22 LNations ER Tech1) Monoscreen Urgent (14:42 06/05/2016 EKoroleva P.A.-C) (Ack 14:46 Cody) (14:57 LNations ER Tech1) MEDICATION ORDERS: Dexamethasone PO 8mg (NOW) (15:44 06/05/2016 EKoroleva P.A.-C) (Ack 16:10 Yuli R.N.) (16:21 Yuli R.N.) Amoxicillin PO 500 mg (NOW) (15:44 06/05/2016 EKoroleva P.A.-C) (Ack 16:10 Yuli R.N.) (16:21 Yuli R.N.) IV FLUIDS: ORDER SHEET NOTES: [Electronically signed by Lynn DiazAMichell-C (16:31 06/05/2016)] [Electronically signed by Maxine Zamudio R.N. (16:58 06/05/2016)] [Electronically locked/signed by Maxine Zamudio R.N. (16:58 06/05/2016)]
--- NOTE | 2016-06-05 15:45 | ED CLINICAL REPORT ---
Clinical Report - Physicians/Mid Levels [facility] [address] [place] [address] 06/05/2016 13:21 Patient: MANUEL THORPE III Time Seen: 14:09 Jun 05 2016. Arrived- By private vehicle. Historian- patient. 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 Pain described as moderate. The patient has had a sore throat. (Patient with similar symptoms as previous. Reports sore throat. Denies cough. Reports previous visit for similar. Patient with no abdominal pain no recent hemoptysis. No distress. Patient has not taken any medications prior to arrival.). REVIEW OF SYSTEMS No fever, cough, nausea or diarrhea. All systems otherwise negative, except as recorded above. SOCIAL HISTORY Never smoker. No alcohol use or drug use. ADDITIONAL NOTES The nursing notes have been reviewed. PHYSICAL EXAM Vital Signs: 06/05/2016 14:01 BP: 135/79. HR: 87. RR: 16. O2 saturation: 100%. Temp: 97.9 F. Pain level now: 6/10. Appearance: Alert. Head: Normal external inspection. ENT: Ears normal. Nose normal. Pharyngeal erythema. Pharynx normal. Uvula midline. (no uvula deviation). No dental decay or tenderness or trismus. Neck: Lymphadenopathy present (anterior significant). Trachea midline. No adenopathy. CVS: Normal heart rate and rhythm. Heart sounds normal. Respiratory: No respiratory distress. Breath sounds normal. No decreased air movement or rales. Skin: No rash. PROGRESS AND PROCEDURES Course of Care: Patient stable in the ER. Uvula is midline, he naturally has large tonsils, rapid strep is negative in the ER. Monospot negative. Patient was evaluated with Dr. Mcconnell, agreed upon treatment plan, and patient will be discharged started on steroid, as well as antibiotics, he is urged to follow-up with ENT. Stable. NO distress. 06/05/2016 14:01 BP: 135/79. HR: 87. RR: 16. O2 saturation: 100%. Temp: 97.9 F. Pain level now: 6/10. Patient is stable. Patient/family counseled. Disposition: Discharged. CLINICAL IMPRESSION Acute pharyngitis INSTRUCTIONS Do not work for two days. (salt water gargles). Prescription Medications: Amoxicillin 500 mg tablets: Take 1 orally every 8 hours for 10 days. Dispense thirty (30). No refills. Ibuprofen 800 mg tablets: take 1 tablet orally every 8 hours for 5 days, as needed for swelling or fever. Dispense fifteen (15). No refill. OTC Medications: Tylenol ER 650 mg (available over the counter): take 1 orally every 6 hours for 3 days, as needed for fever or pain. Dispense fifteen (15). No refill. Substitution is permissible. Follow-up with: Shabbir Rodríguez MD, ENT, , [facility], [facility] [address], [address] Follow up. Call for the next available appointment. (Electronically signed by Lynn Diaz P.A.-C 06/05/2016 16:31)
--- NOTE | 2016-06-05 15:45 | ED NURSING NOTES ---
Clinical Report - Nurses [facility] [address] [place] [address] 06/05/2016 13:21 [id number] Triage time 14:Jun 05 2016. Acuity: LEVEL 3. Chief Complaint: SORE THROAT. Alert. SARAH COMA SCORE: Sarah Coma Scale: 15- eyes open spontaneously (4); best verbal response- oriented x 4 (5); best motor response- obeys commands (6). --14:06 Myles Hebert R.N. 14:01 06/05/16. BP: 135/79. HR: 87. RR: 16. O2 saturation: 100% on room air. Temp: 97.9 F (oral). Pain level now: 6/10. Additional comments: throat pain. --14:06 Myles Hebert R.N. Weight: 81.6 kg stated. Height/Length: 68 inches Per Patient. BMI: 27.4. Growth Chart Percentile: Weight: 81.6%. Height/Length: 28.6%. --14:03 Myles Hebert R.N. Medications None. --14:04 Myles Hebert R.N. Allergies No Known Drug Allergy. --14:05 Myles Hebert R.N. History Arrived by private vehicle. Historian: patient. Unaccompanied. ( Sore and swollen Throat). Onset. (about 3 days ago). He has had hoarseness. Reports enlarged lymph nodes. 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 PAST MEDICAL HX: Strep throat. Immunizations: status is unknown. SURGERY HX: No history of previous surgery. SOCIAL HX: Never smoker. No alcohol use or drug use. No infectious disease exposure. ABUSE ASSESSMENT: No report of abuse. FALL RISK ASSESSMENT: Fall risk assessment completed. No fall risk identified. NUTRITIONAL RISK ASSESSMENT: The nutritional risk assessment revealed no deficiencies. FUNCTIONAL ASSESSMENT: Functional assessment: no impairments noted. LEARNING NEEDS ASSESSMENT: The learning needs assessment revealed no barriers. SKIN INTEGRITY ASSESSMENT: Skin integrity risk assessment completed. No skin integrity risk identified. --14:06 Myles Hebert R.N. PROBLEMS: Pharyngitis. Tonsillitis. Laceration. --14:05 Myles Hebert R.N. Interventions ID band on patient. To treatment room. --14:06 Myles Hebert R.N. PHYSICAL ASSESSMENT Ambulatory to room. GENERAL / NEURO / PSYCH: Alert. Oriented X 4. Appears in pain. HEENT: Hoarse voice. Mucous membranes are pink. RESPIRATORY: Respirations not labored. SKIN: Skin is warm and dry. Normal skin turgor. --14:07 Myles Hebert R.N. NURSING PROGRESS NOTES Patient gowned. Reassurance given. Patient identifiers checked. Call light placed in reach. Side rails up x 1. Bed placed in lowest position. Brakes of bed on. Patient ready for evaluation- chart flagged and PA notified. --14:07 Myles Hebert R.N. Patient ID band checked for patient name and birthdate: patient confirmed. Blood samples drawn from the left antecubital space with 23g butterfly by tech per protocol ; labeled in presence of the patient and sent to lab: rainbow set and red, green and blue top. Purple top not drawn. --14:59 Ceicle Robledo, DION Tech1 16:16 06/05/2016 Dexamethasone (Dexamethasone) PO Tablets 8 mg given. Allergies verified and confirmed 5 rights. --16:21 Maxine Zamudio R.N. 16:16 06/05/2016 Amoxicillin PO Capsules 500 mg given. Allergies verified and confirmed 5 rights. --16:21 Maxine Zamudio R.N. 16:20. The patient is resting quietly. Overall patient status is the same- he states feels the same (was able to swallow pills without difficulty). GENERAL / NEURO / PSYCH: Alert. Oriented X 4. RESPIRATORY: No respiratory distress. SKIN: Skin is warm and dry. --16:53 Maxine Zamudio R.N. DISPOSITION / DISCHARGE Departure time: 1620. Condition at departure: stable. No learning barriers present. Discharge instructions provided and reviewed with the patient. Reviewed medication(s). Prescription(s) given to the patient. Work note given. Patient verbalized understanding. Written instructions provided in Korean. The patient was discharged home and unaccompanied at time of discharge. He left the Emergency Department ambulatory and via private vehicle. FALL RISK ASSESSMENT: Fall risk assessment completed. No fall risk identified. --16:55 Maxine Zamudio R.N. 16:20 06/05/16. BP: 121/49. HR: 81. RR: 18. O2 saturation: 98% on room air. Pain level now: 09/11. --16:55 Maxine Zamudio R.N. 16:20 06/05/16. Temp: 97.8 F (oral). --16:57 Maxine Zamudio R.N. Locked/Released at 06/05/2016 16:58 by Maxine Zamudio R.N.
--- NOTE | 2016-06-05 15:45 | ED CLINICAL REPORT ---
Clinical Report - Physicians/Mid Levels [facility] [address] [place] [address] 06/05/2016 13:21 Patient: MANUEL THORPE III Time Seen: 14:09 Jun 05 2016. Arrived- By private vehicle. Historian- patient. 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 Pain described as moderate. The patient has had a sore throat. (Patient with similar symptoms as previous. Reports sore throat. Denies cough. Reports previous visit for similar. Patient with no abdominal pain no recent hemoptysis. No distress. Patient has not taken any medications prior to arrival.). REVIEW OF SYSTEMS No fever, cough, nausea or diarrhea. All systems otherwise negative, except as recorded above. SOCIAL HISTORY Never smoker. No alcohol use or drug use. ADDITIONAL NOTES The nursing notes have been reviewed. PHYSICAL EXAM Vital Signs: 06/05/2016 14:01 BP: 135/79. HR: 87. RR: 16. O2 saturation: 100%. Temp: 97.9 F. Pain level now: 6/10. Appearance: Alert. Head: Normal external inspection. ENT: Ears normal. Nose normal. Pharyngeal erythema. Pharynx normal. Uvula midline. (no uvula deviation). No dental decay or tenderness or trismus. Neck: Lymphadenopathy present (anterior significant). Trachea midline. No adenopathy. CVS: Normal heart rate and rhythm. Heart sounds normal. Respiratory: No respiratory distress. Breath sounds normal. No decreased air movement or rales. Skin: No rash. PROGRESS AND PROCEDURES Course of Care: Patient stable in the ER. Uvula is midline, he naturally has large tonsils, rapid strep is negative in the ER. Monospot negative. Patient was evaluated with Dr. Mcconnell, agreed upon treatment plan, and patient will be discharged started on steroid, as well as antibiotics, he is urged to follow-up with ENT. Stable. NO distress. 06/05/2016 14:01 BP: 135/79. HR: 87. RR: 16. O2 saturation: 100%. Temp: 97.9 F. Pain level now: 6/10. Patient is stable. Patient/family counseled. Disposition: Discharged. CLINICAL IMPRESSION Acute pharyngitis INSTRUCTIONS Do not work for two days. (salt water gargles). Prescription Medications: Amoxicillin 500 mg tablets: Take 1 orally every 8 hours for 10 days. Dispense thirty (30). No refills. Ibuprofen 800 mg tablets: take 1 tablet orally every 8 hours for 5 days, as needed for swelling or fever. Dispense fifteen (15). No refill. OTC Medications: Tylenol ER 650 mg (available over the counter): take 1 orally every 6 hours for 3 days, as needed for fever or pain. Dispense fifteen (15). No refill. Substitution is permissible. Follow-up with: Shabbir Rodríguez MD, ENT, , [facility], [facility] [address], [address] Follow up. Call for the next available appointment. (Electronically signed by Lynn Diaz P.A.-C 06/05/2016 16:31)
--- NOTE | 2016-06-05 16:58 | ED MED RECONCILIATION SUMMARY ---
Patient: MANUEL THORPE III Medication Reconciliation Report [facility] VisitID: [id number] [address] [place] [address] 20y, M Registration Date/Time: 06/05/2016 Weight: 81.6 kg Height/Length: 68 in. BMI: 27.4 ALLERGIES: No Known Drug Allergy The patient's Home Medications are listed below: NONE. The source(s) of the original Home Medication information: Not obtained. The following Medications were given to the patient in the Emergency Department: Dexamethasone [PO] PO 8 mg, administered: 06/05/2016 4:16:00 PM Amoxicillin [PO] PO 500 mg, administered: 06/05/2016 4:16:00 PM The following Medications were prescribed to the patient: Amoxicillin 500 mg tablets: Take 1 orally every 8 hours for 10 days. Dispense thirty (30). No refills. -- Lynn Diaz, P.A.-C Ibuprofen 800 mg tablets: take 1 tablet orally every 8 hours for 5 days, as needed for swelling or fever. Dispense fifteen (15). No refill. -- Lynn Diaz, P.A.-C Tylenol ER 650 mg (available over the counter): take 1 orally every 6 hours for 3 days, as needed for fever or pain. Dispense fifteen (15). No refill. Substitution is permissible. -- Lynn Diaz, P.A.-C
--- NOTE | 2016-06-05 16:58 | ED MAR SUMMARY ---
..... Medication Administration Record [facility] [address] [place] [address] Patient: MANUEL THORPE Visit ID: [id number] 20y, M Weight: 81.6 kg Height/Length: 68 in BMI: 27.4 ALLERGIES: No Known Drug Allergy Given 16:16 06/05/2016 Maxine Zamudio R.N. Medication Administered: DEXAMETHASONE [PO] (DEXAMETHASONE), Dose: 8 mg Tablets PO. Medication Ordered: Dexamethasone PO 8mg (NOW). Given 16:16 06/05/2016 Maxine Zamudio R.N. Medication Administered: AMOXICILLIN [PO], Dose: 500 mg Capsules PO. Medication Ordered: Amoxicillin PO 500 mg (NOW).
--- NOTE | 2016-06-05 16:58 | ED MED RECONCILIATION SUMMARY ---
Patient: MANUEL THORPE III Medication Reconciliation Report [facility] VisitID: [id number] [address] [place] [address] 20y, M Registration Date/Time: 06/05/2016 Weight: 81.6 kg Height/Length: 68 in. BMI: 27.4 ALLERGIES: No Known Drug Allergy The patient's Home Medications are listed below: NONE. The source(s) of the original Home Medication information: Not obtained. The following Medications were given to the patient in the Emergency Department: Dexamethasone [PO] PO 8 mg, administered: 06/05/2016 4:16:00 PM Amoxicillin [PO] PO 500 mg, administered: 06/05/2016 4:16:00 PM The following Medications were prescribed to the patient: Amoxicillin 500 mg tablets: Take 1 orally every 8 hours for 10 days. Dispense thirty (30). No refills. -- Lynn Diaz, P.A.-C Ibuprofen 800 mg tablets: take 1 tablet orally every 8 hours for 5 days, as needed for swelling or fever. Dispense fifteen (15). No refill. -- Lynn Diaz, P.A.-C Tylenol ER 650 mg (available over the counter): take 1 orally every 6 hours for 3 days, as needed for fever or pain. Dispense fifteen (15). No refill. Substitution is permissible. -- Lynn Diaz, P.A.-C
--- NOTE | 2016-06-05 16:58 | ED DISCHARGE INSTRUCTIONS ---
Patient: MANUEL THORPE III General Instructions [facility] VisitID: [id number] [address] [place] [address] 20y, M Registration Date/Time: 06/05/2016 Acute pharyngitis INSTRUCTIONS Do not work for two days. (salt water gargles). Prescription Medications: Amoxicillin 500 mg tablets: Take 1 orally every 8 hours for 10 days. Dispense thirty (30). No refills. Ibuprofen 800 mg tablets: take 1 tablet orally every 8 hours for 5 days, as needed for swelling or fever. Dispense fifteen (15). No refill. OTC Medications: Tylenol ER 650 mg (available over the counter): take 1 orally every 6 hours for 3 days, as needed for fever or pain. Dispense fifteen (15). No refill. Substitution is permissible. Follow-up with: Shabbir Rodríguez MD, ENT, , [facility], [address] [place] [id number] Follow up. Call for the next available appointment. ADDITIONAL INFORMATION Pharyngitis: Strep [Presumed] Your illness has the signs of a strep throat infection. Strep throat is a contagious illness. It is spread by coughing, kissing or by touching others after touching your mouth or nose. Symptoms include throat pain worse with swallowing, aching all over, headache and fever. You will be treated with an antibiotic, which should make you start to feel better within 1-2 days. Home Care: Rest at home and drink plenty of fluids to avoid dehydration. No school or work for the first two days on antibiotics. You will not be contagious after this time, and if you are feeling better, you can return to school or work. Take your antibiotics for a full 10 days, even if you feel better after the first few days of treatment. This is very important to prevent complications from the strep infection (such as heart or kidney disease). Children: Use acetaminophen (Tylenol) for fever, fussiness or discomfort. In infants over six months of age, you may use ibuprofen (Children's Motrin) instead of Tylenol. [NOTE: If your child has chronic liver or kidney disease or ever had a stomach ulcer or GI bleeding, talk with your doctor before using these medicines.] (Aspirin should never be used in anyone under 18 years of age who is ill with a fever. It may cause severe liver damage.) Adults: You may use acetaminophen (Tylenol) or ibuprofen (Motrin, Advil) to control pain or fever, unless another medicine was prescribed for this. [NOTE: If you have chronic liver or kidney disease or ever had a stomach ulcer or GI bleeding, talk with your doctor before using these medicines.] Throat lozenges or sprays (Chloraseptic and others) will reduce pain. Gargling with warm salt water will also reduce throat pain. Dissolve 1/2 teaspoon of salt in 1 glass of warm water. This is especially useful just before meals. Follow Up with your doctor or as directed by our staff if you are not improving over the next week. Get Prompt Medical Attention if any of the following occur: Fever over 100.5F (38.0C) oral, or over 101.5F (38.6C) rectal for more than three days New or worsening ear pain, sinus pain or headache Painful lumps in the back of your neck Unable to swallow liquids or open your mouth wide due to throat pain Trouble breathing or noisy breathing Muffled voice New rash You have been given the following additional information: Pharyngitis, Strep (Presumed) Do not work for two days. (Electronically signed by Lynn Diaz P.A.-C 06/05/2016 16:31)
--- NOTE | 2016-06-05 16:58 | ED MAR SUMMARY ---
..... Medication Administration Record [facility] [address] [place] [address] Patient: MANUEL THORPE Visit ID: [id number] 20y, M Weight: 81.6 kg Height/Length: 68 in BMI: 27.4 ALLERGIES: No Known Drug Allergy Given 16:16 06/05/2016 Maxine Zamudio R.N. Medication Administered: DEXAMETHASONE [PO] (DEXAMETHASONE), Dose: 8 mg Tablets PO. Medication Ordered: Dexamethasone PO 8mg (NOW). Given 16:16 06/05/2016 Maxine Zamudio R.N. Medication Administered: AMOXICILLIN [PO], Dose: 500 mg Capsules PO. Medication Ordered: Amoxicillin PO 500 mg (NOW).
--- NOTE | 2016-06-05 16:58 | ED DISCHARGE INSTRUCTIONS ---
Patient: MANUEL THORPE III General Instructions [facility] VisitID: [id number] [address] [place] [address] 20y, M Registration Date/Time: 06/05/2016 Acute pharyngitis INSTRUCTIONS Do not work for two days. (salt water gargles). Prescription Medications: Amoxicillin 500 mg tablets: Take 1 orally every 8 hours for 10 days. Dispense thirty (30). No refills. Ibuprofen 800 mg tablets: take 1 tablet orally every 8 hours for 5 days, as needed for swelling or fever. Dispense fifteen (15). No refill. OTC Medications: Tylenol ER 650 mg (available over the counter): take 1 orally every 6 hours for 3 days, as needed for fever or pain. Dispense fifteen (15). No refill. Substitution is permissible. Follow-up with: Shabbir Rodríguez MD, ENT, , [facility], [address] [place] [id number] Follow up. Call for the next available appointment. ADDITIONAL INFORMATION Pharyngitis: Strep [Presumed] Your illness has the signs of a strep throat infection. Strep throat is a contagious illness. It is spread by coughing, kissing or by touching others after touching your mouth or nose. Symptoms include throat pain worse with swallowing, aching all over, headache and fever. You will be treated with an antibiotic, which should make you start to feel better within 1-2 days. Home Care: Rest at home and drink plenty of fluids to avoid dehydration. No school or work for the first two days on antibiotics. You will not be contagious after this time, and if you are feeling better, you can return to school or work. Take your antibiotics for a full 10 days, even if you feel better after the first few days of treatment. This is very important to prevent complications from the strep infection (such as heart or kidney disease). Children: Use acetaminophen (Tylenol) for fever, fussiness or discomfort. In infants over six months of age, you may use ibuprofen (Children's Motrin) instead of Tylenol. [NOTE: If your child has chronic liver or kidney disease or ever had a stomach ulcer or GI bleeding, talk with your doctor before using these medicines.] (Aspirin should never be used in anyone under 18 years of age who is ill with a fever. It may cause severe liver damage.) Adults: You may use acetaminophen (Tylenol) or ibuprofen (Motrin, Advil) to control pain or fever, unless another medicine was prescribed for this. [NOTE: If you have chronic liver or kidney disease or ever had a stomach ulcer or GI bleeding, talk with your doctor before using these medicines.] Throat lozenges or sprays (Chloraseptic and others) will reduce pain. Gargling with warm salt water will also reduce throat pain. Dissolve 1/2 teaspoon of salt in 1 glass of warm water. This is especially useful just before meals. Follow Up with your doctor or as directed by our staff if you are not improving over the next week. Get Prompt Medical Attention if any of the following occur: Fever over 100.5F (38.0C) oral, or over 101.5F (38.6C) rectal for more than three days New or worsening ear pain, sinus pain or headache Painful lumps in the back of your neck Unable to swallow liquids or open your mouth wide due to throat pain Trouble breathing or noisy breathing Muffled voice New rash You have been given the following additional information: Pharyngitis, Strep (Presumed) Do not work for two days. (Electronically signed by Lynn Diaz P.A.-C 06/05/2016 16:31)
== END 2016-06-05 16:20 | disposition home or self-care (01) ==
LOC: ED SRH 13:19
DX: J02.9 Acute pharyngitis, unspecified (principal)
CPT/HCPCS: 90154; 90159; 98370